=== PATIENT | female | born 1990 | race Caucasian/White ===

== ENCOUNTER 2018-02-28 11:37 | Emergency (ER) | payer OTHER ==
[2018-02-28] MEDS ORDERED: NORCO 5/325 MG PO ONE (11:54)
[2018-02-28] MEDS ORDERED: NORCO 5/325 MG ONE (11:58)
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
[2018-02-28 12:23] LABS: Appearance HAZY (CLEAR); Bilirubin NEGATIVE (NEGATIVE); Blood NEGATIVE Ery/ul (0-5); Glucose NEGATIVE (NEGATIVE); Ketones NEGATIVE (NEGATIVE); Leukocyte Esterase NEGATIVE (NEGATIVE); Nitrite NEGATIVE (NEGATIVE); Protein,Urine Dip NEGATIVE (Negative); Specific Gravity 1.015 (1.005-1.025); Urobilinogen NORMAL mg/dL (0-1)
[2018-02-28 12:31] LABS: Epithelial Cells FEW /HPF (FEW)
[2018-02-28 12:32] LABS: Bacteria RARE /HPF (NEGATIVE); WBC 0-2 /HPF (0-5)
[2018-02-28 13:18] VITALS: BP 109/71; PULSE 68
[2018-02-28 13:23] VITALS: O2SAT 99
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
== END 2018-02-28 13:35 | disposition home or self-care (01) ==
LOC: ED 11:37
DX: S13.4XXA Sprain of ligaments of cervical spine, initial encounter (principal); S43.402A Unspecified sprain of left shoulder joint, initial encounter; M54.2 Cervicalgia; M25.512 Pain in left shoulder; V53.5XXA Driver of pick-up truck or van injured in collision with car, pick-up truck or van in traffic accident, initial encounter
CPT/HCPCS: 72125; 73030; 81000; 84703; 99283; 99284; L0120; A9270-GY